=== PATIENT | female | born 2000 | race Caucasian/White ===

== ENCOUNTER 2023-09-01 14:15 | Emergency (ER) | payer BC, SELFPAY ==
--- NOTE | ~2023-09-01 | XR_ITS ---
EXAMINATION: XR chest 2V DATE: 09/01/2023 17:20 INDICATION: Shortness of breath TECHNIQUE: frontal and lateral views of the chest were obtained. COMPARISON: None FINDINGS: The lungs are clear with no focal airspace opacities, pulmonary edema, pleural effusion or pneumothor ax. The cardiomediastinal silhouette is normal. Visualized bones and soft tissues are unremarkable. IMPRESSION: 1. No acute cardiopulmonary disease. Reviewed, dictated and finalized at location B.
[2023-09-01 14:18] VITALS: BP 132/87; PULSE 80; RESP 17; TEMP 36.1; O2SAT 98
--- NOTE | 2023-09-01 16:59 | ECG_ITS ---
Test Date: 2023-09-01 17:06:43 Measurements Intervals [place] Rate: 66 P: 60 VT: 144 QRS: 74 QRSD: 85 T: 48 QT: 378 QTc: 399 Interpretive Statements SINUS RHYTHM WITH SINUS ARRHYTHMIA LOW QRS VOLTAGE IN PRECORDIAL LEADS [QRS DEFLECTION < 1.0 mV IN CHEST LEADS] No previous ECG available for comparison Electronically Signed On 09-02-2023 13:25:13 CDT by Swetha Alberto M.D.
[2023-09-01 17:06] VITALS: BP 116/73; PULSE 69; PULSE 85; RESP 11; O2SAT 100
[2023-09-01 17:18] LABS: Basophils Percent Auto 0.4 % (0.2-1.2); Eosinophils Absolute Auto 0.1 K/mm3 (0-0.3); Eosinophils Percent Auto 1.1 % (0-4.4); Hemoglobin 13.8 g/dL (12.0-15.0); Immature Granulocyte Absolute 0.01 K/mm3 (0.00-0.031); Immature Granulocyte Percent A 0.1 % (0-0.5); Lymphocytes Absolute Auto 2.54 K/mm3 (0.9-3.2); Mean Corpuscular HGB Conc 33.7 g/dl (32-36); Mean Corpuscular Hemoglobin 28.9 pg (26-34); Mean Corpuscular Volume 85.8 fl (80-100); Monocytes Absolute Auto 0.7 K/mm3 (0.1-0.6); Monocytes Percent Auto 7.4 % (2.6-8.5); Neutrophils Absolute Auto 6.4 K/mm3 (1.3-6.7); Platelet Count Result 232 k/mm3 (150-375); Red Blood Count 4.78 M/mm3 (4.2-5.4); Red Cell Distribution Width 12.3 % (11.5-14.5); White Blood Count 9.8 K/mm3 (4.5-10.0)
[2023-09-01 17:28] LABS: Alanine Aminotransferase 41 U/L (6-35); Albumin Level 4.4 g/dL (3.5-5.1); Alkaline Phosphatase 72 U/L (38-126); Anion Gap 8 mmol/L (4-12); Aspartate Amino Transferase 40 U/L (14-36); Bilirubin,Total 0.4 mg/dL (0.2-1.3); Blood Urea Nitrogen 12 mg/dL (7-17); Carbon Dioxide 27 mmol/L (22-30); Chloride 105 mmol/L (98-107); Estimated CRCL calculation 134 ml/min; Estimated Glomerular Filt Rate > 60; Glucose 87 mg/dL (65-110); Potassium 3.7 mmol/L (3.4-5.0); Sodium 140 mmol/L (137-145)
[2023-09-01 18:34] VITALS: BP 120/83; PULSE 76; RESP 19; O2SAT 100
[2023-09-01 18:46] VITALS: BP 115/87; PULSE 80; RESP 29; O2SAT 99
--- NOTE | 2023-09-01 18:48 | ED.SOB ---
HPI - SOB/Dyspnea General Chief Complaint: Shortness of Breath/Dyspnea Stated Complaint: SOB Time Seen by Provider: 09/01/23 17:54 Source: patient, family, RN notes reviewed and old records reviewed Mode of arrival: ambulatory Limitations: no limitations History of Present Illness HPI Narrative: This is a 23 year old who presents for evaluation of shortness of breath. PAtient states last night she was smoking marijuana but this is not abnormal for her. She woke up this morning feeling unwell. She reports raspy throat, shortness of breath, intermittent chest pain. Her family reports she cant take deep breath sometimes. She also reports that she binds her chest so her symptoms may be related to that. PAtient is worried that she may have an illness or chest injury. She denies leg swelling, calf pain, nausea and vomiting. She denies alcohol use or any other drug use. Related Data Allergies Allergy/AdvReac Type Severity Reaction Status Date / Time No Known Allergies Allergy Verified 09/01/23 17:10 Review of Systems Constitutional: Constitutional: Denies weakness Cardiovascular: Cardiovascular: Reports chest pain, Denies syncope, Denies rapid heart rate, Denies irregular heart rhythm, Denies leg edema and Reports dyspnea Respiratory: Respiratory: Denies chest congestion, Denies hemoptysis, Denies excessive phlegm production and Reports dyspnea Gastrointestinal: Gastrointestinal: Denies abdominal pain, Denies hematochezia, Denies diarrhea and Denies vomiting Genitourinary: Genitourinary: Denies hematuria and Denies dysuria Musculoskeletal: Musculoskeletal: Denies joint swelling, Denies loss of height and Denies muscle weakness Neurologic: Denies syncope, Denies focal weakness and Denies weakness PMFSH Past Medical History Medical History (Updated 09/01/23 @ 19:39 by Devora Banda MD) No active medical problems Surgical History Surgical History (Updated 09/01/23 @ 18:53 by Devoar Banda MD) No pertinent past surgical history Social History Social History Smoking status: Never smoker Alcohol intake: never Exam Const: General: no acute distress and alert Nutritional Appearance: well nourished Orientation/consciousness: patient oriented x3 HENMT: Mouth: Yes Normal oral and palatal mucosa present, Yes lip normal and Yes moist mucous membranes Throat: posterior oropharynx normal and uvula midline Eyes: EOM: EOMs intact bilaterally Chest: Chest palpation & inspection: tenderness rib and pectoral muscle Resp: Effort & Inspection: normal respiratory effort Auscultation: clear to auscultation bilaterally Cardio: Rate: regular rate Rhythm: regular rhythm Heart sounds: no murmurs GI: GI Palp: Yes Soft to palpation, No Tenderness to palpation present (GI), No Guarding due to palpation present (GI) and No Rigid due to palpation Auscultation: normal bowel sounds Skin: General skin exam: normal color Rashes: no rashes Wounds: no wounds Neuro: General: patient oriented x3, moves all extremities and CN's II-XI intact bilaterally Extrem: General: normal to inspection Psych: Mental Status: mental status grossly normal Affect: normal affect Attitude: cooperative Course Reevaluation(s) Reevaluation #1: I reviewed labs, EKG, chest xray with patient. PAtient's labs are normal.Lungs are clear. She will discontinue binding her chest . We discussed albuterol inhaler. Patient reports intermittent wheezing. She does not have wheezing on my exam. She declined inhaler. Date: 09/01/23 Time: 19:35 Vital Signs Vital signs: Vital Signs Temperature 97.0 F L 09/01/23 14:18 Pulse Rate 80 09/01/23 14:18 Respiratory Rate 17 09/01/23 14:18 Blood Pressure 132/87 09/01/23 14:18 Pulse Oximetry 98 09/01/23 14:18 Oxygen Delivery Room Air 09/01/23 14:18 Temperature 97.0 F L 09/01/23 14:18 Pulse Rate 85 09/01/23 19:01 Respiratory Rate 24 H 09/01/23 19:01 Blood Pressure 12
[2023-09-01 19:01] VITALS: BP 128/88; PULSE 85; RESP 24; O2SAT 100
[2023-09-01 19:03] LABS: D Dimer < 0.27 ug/mL (<0.48)
[2023-09-01 19:09] LABS: Strep Group A RT-PCR NOT DETECTED (Negative)
--- NOTE | 2023-09-01 19:14 | PC.NURSE ---
Report given to Isa MUNOZ, all questions answered
[2023-09-01 19:21] LABS: Influenza A QL RT-PCR Negative (Negative); Influenza B QL RT-PCR Negative (Negative); SARS-CoV-2 RNA PCR Negative (Negative)
== END 2023-09-01 19:52 | disposition home or self-care (01) ==
PROVIDERS: Emergency Medicine; Emergency Provider General Practice; PCP Family Medicine
DX: R06.00 Dyspnea, unspecified (principal); Z20.822 Contact with and (suspected) exposure to COVID-19
CPT/HCPCS: 36415; 71046; 80053; 85025; 85380; 87636; 87651; 93005; 99284